=== PATIENT | female | born 1975 | race Two or more races ===

== ENCOUNTER 2022-07-13 20:18 | Emergency (ER) | payer OTHER ==
[~2022-07-13] VITALS: Ht 152.4 cm; Wt 47.6 kg
[2022-07-14] MEDS ORDERED: VALTREX1000 MG PO (02:43)
== END 2022-07-14 03:04 | disposition home or self-care (01) ==
LOC: ER 20:18
DX: B02.30 Zoster ocular disease, unspecified (principal); Z88.0 Allergy status to penicillin